=== PATIENT | female | born 1980 | race Caucasian/White ===

== ENCOUNTER → 2017-06-29 | Outpatient (CLI) | payer BC ==
[~2017-06-29] MED LIST: AMOXICILLIN 8751 TAB PO; BCP; BUSPIRONE HCL7.5 MG PO; CYCLAFEM 1/35 31 TAB PO; DESYREL 100MG100 MG PO; LORTAB 5/500 501 TAB PO
== END ==
LOC: COL.RAD 14:11
DX: M25.551 Pain in right hip (principal)
CPT/HCPCS: J3301; Q9967

== ENCOUNTER → 2017-09-09 | Outpatient (CLI) | payer BC | LOC: COL.RAD 07:55 | DX: S73.191A Other sprain of right hip, initial encounter (principal); Z98.890 Other specified postprocedural states | CPT/HCPCS: A9585; Q9967 ==

== ENCOUNTER → 2020-12-19 | Outpatient (CLI) | payer BC | LOC: MC.RAD | DX: Z12.31 Encounter for screening mammogram for malignant neoplasm of breast (principal) ==

== ENCOUNTER → 2022-04-21 | Outpatient (CLI) | payer BC | LOC: MC.RAD 06:52 | DX: Z12.31 Encounter for screening mammogram for malignant neoplasm of breast (principal) ==